=== PATIENT | female | born 1995 | race African-American/Black ===

== ENCOUNTER 2021-10-24 20:28 | Inpatient (IN) ==
[2021-10-24] MEDS ORDERED: MEPERIDINE 50 MG/1 ML VIAL IV PRN (20:44)
[2021-10-24] MEDS ORDERED: ONDANSETRON 4 MG/2 ML VIAL IV PRN (20:44)
[2021-10-24] MEDS ORDERED: BUTORPHANOL 2 MG/ML VIAL IV PRN (20:44)
[2021-10-24 21:18] LABS: Basophils % 0.3 % (0.0-0.8); Eosinophils % 0.5 % (0.00-10.9); Hematocrit 30.3 VOL% (35.7-47.0); Hemoglobin 9.4 GM/DL (12.0-16.0); Immature Granulocytes % 0.8 %; Immature Granulocytes Absolute 0.06 #; Lymphocytes # 2.2 10*3/uL (1.4-4.0); Monocytes % 7.6 % (1.7-12.7); Neutrophils % 61.8 % (38.7-73.9); Platelet Count 95 T/CUMM (130-400); Red Blood Count 4.15 MC/CUMM (3.8-5.5); Red Cell Distribution Width 14.8 % (9.3-17.3); White Blood Count 7.6 T/CUMM (4-12)
[2021-10-24 21:38] LABS: Anisocytosis Slight; Eosinophils 1 % (0-10); Lymphocytes 29 % (20-55); Segmented Neutrophils 65 % (50-85); Total Cells Counted 100
[2021-10-24 21:39] LABS: Platelet Estimate Adequate
[2021-10-25] MEDS: LACTATED RINGERS 1,000 ML IV SCH (07:35)
[2021-10-25] MEDS ORDERED: LACTATED RINGERS 1,000 ML IV ONE ×2 (08:26→17:35)
[2021-10-25] MEDS ORDERED: FAMOTIDINE 20 MG/2 ML VIAL IV ONE (08:26)
[2021-10-25] MEDS ORDERED: CITRIC ACID/SODIUM CITRATE 30 ML UDCUP PO ONE (08:26)
[2021-10-25] MEDS ORDERED: NALOXONE 0.4 MG/ML VIAL IV PRN (08:26)
[2021-10-25] MEDS ORDERED: ePHEDrine 50 MG/ML VIAL IV PRN (08:26)
[2021-10-25] MEDS ORDERED: diphenhydrAMINE 50 MG/1 ML VIAL IV PRN ×2 (08:26)
[2021-10-25] MEDS ORDERED: fentaNYL 2 MCG/ROPIV 0.2% EPID 100 ML EPIDURAL SCH (08:30)
[2021-10-25] MEDS: OXYTOCIN/LR 20 UNIT/1,000 ML BAG IV SCH ×2 (08:35→18:17)
[2021-10-25 13:45] LABS: Bilirubin,Urine Negative (Negative); Blood, Urine Small mg/dL (Negative); Glucose,Urine (UA) Negative (Negative); Ketones,Urine Negative (Negative); Mucus,Urine Occasional /LPF (Occasional); Nitrite,Urine Negative (Negative); Protein,Urine Negative; Squamous Epithelial Cell,Urine Occasional /HPF (0-10); Urine Appearance CLEAR (Clear); Urine Color Straw (Yellow); Urine Specific Gravity 1.005 (1.001-1.035); Urine Urobilinogen < 2.0 EU/DL (<2.0)
[2021-10-25] MEDS ORDERED: TERBUTALINE 1 MG/1 ML VIAL ONE (15:18)
[2021-10-25] MEDS ORDERED: ceFAZolin 2,000 MG/50 ML DUPLEX IV ONE (17:11)
[2021-10-25] MEDS ORDERED: LIDOCAINE MPF 2% /EPI 20 ML VIAL ONE (17:15)
[2021-10-25] MEDS ORDERED: miSOPROStoL 200 MCG TABLET ONE (17:17)
[2021-10-25] MEDS ORDERED: OXYTOCIN/LR 20 UNIT/1,000 ML BAG IV ONE ×2 (17:18→20:32)
[2021-10-25] MEDS ORDERED: CARBOPROST TROMETHAMINE 250 MCG/ML AMP IM ONE (17:19)
[2021-10-25] MEDS ORDERED: METHYLERGONOVINE 0.2 MG/1 ML AMP ONE (17:19)
[2021-10-25] MEDS ORDERED: fentaNYL 100 MCG/2 ML VIAL ONE (17:28)
[2021-10-25] MEDS ORDERED: PHENYLEPHRINE 1 MG/10 ML SYRINGE IV ONE (17:35)
[2021-10-25] MEDS ORDERED: ONDANSETRON 4 MG/2 ML VIAL ONE (17:46)
[2021-10-25] MEDS ORDERED: DEXAMETHASONE 4 MG/1 ML VIAL ONE (17:47)
[2021-10-25] MEDS ORDERED: ACETAMINOPHEN INJ 1,000 MG/100 ML VIAL IV ONE (17:51)
[2021-10-25 17:54] LABS: Cord Arterial Blood HCO3 25.1 MMOL/L
[2021-10-25 17:57] LABS: Cord Venous Blood HCO3 23.8 MMOL/L; Cord Venous Blood PCO2 46.8 MMHG; Cord Venous Blood PO2 < 19.0 MMHG
[2021-10-25] MEDS ORDERED: METHYLERGONOVINE 0.2 MG/1 ML AMP IM ONE (18:26)
[2021-10-25] MEDS ORDERED: hydrALAZINE 20 MG/1 ML VIAL IV PRN (20:03)
[2021-10-25] MEDS: LABETALOL 100 MG TABLET PO SCH (20:27)
[2021-10-25] MEDS ORDERED: HYDROCORTISONE 2.5% RECTAL CREAM 30 GM TUBE TOP PRN (20:32)
[2021-10-25] MEDS ORDERED: ACETAMINOPHEN 325 MG TABLET PO PRN (20:32)
[2021-10-25] MEDS ORDERED: DIPH/TET/ACEL PERT BOOSTER VACCINE 0.5 ML VIAL IM ONE (20:32)
[2021-10-25] MEDS ORDERED: BISACODYL 10 MG SUPP RECTAL PRN (20:32)
[2021-10-25] MEDS ORDERED: ONDANSETRON 4 MG/2 ML VIAL IV PRN (20:32)
[2021-10-25] MEDS ORDERED: BENZOCAINE 20%/MENTHOL 0.5% SPRAY 56 GM CAN TOP PRN (20:32)
[2021-10-25] MEDS ORDERED: RHO(D) IMMUNE GLOBULIN 300 MCG SYRINGE IM ONE (20:32)
[2021-10-25] MEDS ORDERED: WITCH HAZEL PADS 100/JAR TOP PRN (20:32)
[2021-10-25] MEDS ORDERED: MEASLES/MUMPS/RUBELLA VACCINE 0.5 ML VIAL SUBCUT ONE (20:32)
[2021-10-25] MEDS ORDERED: LANOLIN 50% CREAM 0.3 OZ TUBE TOP PRN (20:32)
[2021-10-26] MEDS: LACTATED RINGERS 1,000 ML IV SCH
[2021-10-26] MEDS: LABETALOL 100 MG TABLET PO SCH ×3 (05:07→23:13)
[2021-10-26] MEDS: ACETAMINOPHEN 500 MG TABLET PO SCH ×3 (05:07→13:47)
[2021-10-26 05:53] LABS: Basophils % 0.1 % (0.0-0.8); Hematocrit 29.5 VOL% (35.7-47.0); Immature Granulocytes % 0.6 %; Immature Granulocytes Absolute 0.12 #; Lymphocytes # 1.2 10*3/uL (1.4-4.0); Mean Corpuscular HGB Conc 30.5 GM/DL (32-36); Mean Corpuscular Volume 74.3 FL (87-102); Monocytes % 5.3 % (1.7-12.7); Platelet Count 91 T/CUMM (130-400); Red Blood Count 3.97 MC/CUMM (3.8-5.5); Red Cell Distribution Width 14.8 % (9.3-17.3); White Blood Count 19.7 T/CUMM (4-12)
[2021-10-26 06:20] LABS: Lymphocytes 4 % (20-55); Platelet Estimate Decreased; Segmented Neutrophils 93 % (50-85); Total Cells Counted 100
[2021-10-26 06:21] LABS: Hypochromia 1+; Microcytosis 1+
[2021-10-26] MEDS: oxyCODONE/ACETAMINOPHEN 5-325 MG TABLET PO PRN ×3 (07:25→19:55)
[2021-10-26] MEDS: DOCUSATE SODIUM 100 MG CAPSULE PO SCH ×3 (09:27→21:00)
[2021-10-26] MEDS: IBUPROFEN 800 MG TABLET PO PRN (12:30)
[2021-10-27] MEDS: IBUPROFEN 800 MG TABLET PO PRN (00:49)
[2021-10-27] MEDS: oxyCODONE/ACETAMINOPHEN 5-325 MG TABLET PO PRN ×2 (02:02→09:23)
[2021-10-27] MEDS: LABETALOL 100 MG TABLET PO SCH (05:29)
[2021-10-27] MEDS: DOCUSATE SODIUM 100 MG CAPSULE PO SCH (09:19)
[2021-10-27 09:55] VITALS: BP 118/69
== END 2021-10-27 13:13 | disposition home or self-care (01) | DRG 788 ==
LOC: N.LDOUT 20:28 → N.LD 20:31 → N.OB 10-26 02:09
PROVIDERS: ADMIT Specialist; ATTEND Specialist
PROC: LDCSECT (ICD-10-PCS; 2021-10-25 17:00)